=== PATIENT | male | born 1980 | race Caucasian/White ===

== ENCOUNTER 2017-03-23 20:03 | Emergency (ER) | payer SELFPAY ==
[~2017-03-23] VITALS: Ht 180.3 cm; Wt 76.0 kg
[~2017-03-23 20:03] MED LIST: NAPR500
[2017-03-23 20:05] VITALS: BP 126/79; PULSE 79; RESP 16; TEMP 99; O2SAT 99
--- NOTE | 2017-03-23 21:36 | PD ---
HPI Chief Complaint: Injury Time Seen by Provider: 21:30 Travel History International Travel<30 days: No Contact w/Intl Traveler<30days: No Traveled to known affect area: No History of Present Illness HPI 36-year-old white male presents to emergency department with complains of right knee pain. He states that around 9:00 this morning he had his right knee pinned between a log and a trailer. He states that his knee popped. He's been having pain to the anterior medial portion of the knee. He states that he is able to weight-bear but he has limited flexion of the knee. No injury to his head, neck or back. Pain is moderate. PFSH Past Medical History Narrative Medical Chronic knee pain, hep C Diminished Hearing: No Hepatitis: Yes (hep. c.) Tetanus Vaccination: Unknown Past Surgical History Narrative Surgical Bilateral knee surgery Other Surgery: Yes (left knee and left shoulder scoped.) Social History Alcohol Use: Yes (DRINKS EVERY WEEKEND) Tobacco Use: Yes (1 ppd) Substance Use: No Allergies-Medications (Allergen,Severity, Reaction): Coded Allergies: No Known Allergies (Verified , 03/23/17) Reported Meds & Prescriptions Reported Meds & Active Scripts Active Diclofenac Sodium DR (Diclofenac Sodium) 75 Mg Tabdr 75 Mg PO BID Review of Systems Except as stated in HPI: all other systems reviewed are Neg (I) Musculoskeletal: Positive: Arthralgias, Limited ROM, Edema, Pain Physical Exam Narrative GENERAL: This is a well-nourished, well-developed patient, in no apparent distress. The patient is ambulatory with antalgic gait SKIN: No rashes, ecchymoses or lesions. Warm and dry. HEAD: Atraumatic. Normocephalic. EYES: PERRL, EOMI, no discharge or injection. No scleral icterus. EARS: Clear NOSE: Nasal turbinates appear normal. THROAT: Mucosa pink and moist. Airway patent. NECK: Trachea midline. supple, moves head freely. LUNGS: Clear to auscultation. CV: Regular in rhythm. ABDOMEN: Soft nontender. EXT: No clubbing cyanosis. Examination of the right lower extremity reveals a abrasion with some mild soft tissue swelling to the distal medial portion of the knee. Patient is able to fully extend but has limited flexion to 90. No grossly ligament instability. No anterior posterior draw. No medial lateral collateral ligament instability. No pain in the foot, ankle, hip. The left lower shoulder as well as upper extremities are unremarkable. Data Data Last Documented VS Vital Signs Date Time Temp Pulse Resp B/P Pulse Ox O2 Delivery O2 Flow Rate FiO2 03/23/17 20:05 99.0 79 16 126/79 99 Room Air Orders Knee, Complete (4vws) (03/23/17 21:29) Ice/Cold Pack (03/23/17 21:29) Splint Or Brace Apply/Monitor (03/23/17 21:29) MDM Medical Decision Making Medical Screen Exam Complete: Yes Emergency Medical Condition: Yes Medical Record Reviewed: Yes Interpretation(s) Right knee: Negative for acute bony injury. No joint effusion. Differential Diagnosis MDM: High Differential diagnoses: Fracture, sprain, strain, dislocation, contusion, neurovascular injury Narrative Course Patient's given knee immobilizer. Naprosyn 500 mg by mouth. This is right knee contusion, right knee sprain Diagnosis Primary Impression: Contusion of right knee Qualified Code: S80.01XA - Contusion of right knee, initial encounter Additional Impression: Right knee sprain Qualified Code: S83.401A - Sprain of collateral ligament of right knee, initial encounter Patient Instructions: General Instructions Departure Forms: Tests/Procedures, Work Release Special Instructions: No work for the next 3-5 days. Additional Instructions: Rest. Elevation. Ice packs for the next 3 days. Knee immobilizer. weight-bearing as tolerated. Medications as directed Follow-up with an orthopedist or your doctor in one week. Return to the ER if any problems Med/Other Pt SpecificInfo: Prescription(s) given Scripts Diclofenac Sodium DR 75 Mg Tabdr75 Mg PO BID #30 TAB Prov:Leann Ansari MD 03/23/17 Disposition: 01 DISCHARGE HOME Condition: Stable Sherif Arvizu Mar 23, 2017 21:36
[2017-03-23] MEDS ORDERED: DICL75TA PO (21:37)
--- NOTE | 2017-03-23 21:57 | RADRPT ---
EXAM DATE/TIME: 03/23/2017 21:44 [facility] COMPARISON: No previous studies available for comparison. INDICATIONS : Fall. Right knee pain. MEDICAL HISTORY : None. SURGICAL HISTORY : None. ENCOUNTER: Initial ACUITY: 2 days PAIN SCORE: 8/10 LOCATION: Right lateral FINDINGS: Four view examination of the right knee demonstrates no evidence of fracture or dislocation. Bony mi neralization is normal. The articular surfaces are intact. The suprapatellar soft tissues have a no rmal configuration. CONCLUSION: No acute disease. Casa Helton MD on March 23, 2017 at 21:55 Board Certified Radiologist. This report was verified electronically.
[2017-03-23] MEDS ORDERED: NAPROXEN 500 MG TAB PO ONE (22:00)
== END 2017-03-23 22:36 | disposition home or self-care (01) ==
LOC: NEPK 20:03
DX: S80.01XA Contusion of right knee, initial encounter (principal); S83.401A Sprain of unspecified collateral ligament of right knee, initial encounter; B19.20 Unspecified viral hepatitis C without hepatic coma; F17.200 Nicotine dependence, unspecified, uncomplicated; W23.0XXA Caught, crushed, jammed, or pinched between moving objects, initial encounter
CPT/HCPCS: 73564; 99283; L1830